=== PATIENT | female | born 1975 | race Caucasian/White ===

== ENCOUNTER 2023-03-15 11:31 | Emergency (ER) | payer OTHER ==
[2023-03-15] MEDS ORDERED: Ibuprofen 800 MG TAB ONE (12:23)
== END 2023-03-15 12:39 | disposition home or self-care (01) ==
LOC: MADERS 11:31
DX: S13.9XXA Sprain of joints and ligaments of unspecified parts of neck, initial encounter (principal); H93.8X2 Other specified disorders of left ear; F17.210 Nicotine dependence, cigarettes, uncomplicated; Z79.899 Other long term (current) drug therapy; V89.2XXA Person injured in unspecified motor-vehicle accident, traffic, initial encounter